=== PATIENT | male | born 2005 | race Caucasian/White ===

== ENCOUNTER 2024-05-30 17:27 | Emergency (ER) | payer SELFPAY ==
[~2024-05-30] VITALS: Ht 182.9 cm; Wt 92.2 kg
[2024-05-30 17:36] VITALS: BP 129/71; PULSE 80; RESP 16; TEMP 97.8
[2024-05-30 20:24] VITALS: O2SAT 98
[2024-05-30] MEDS: TETANUS-DIPTH-ACEL PERTUSSIS 0.5ML SYR Tdap IM ONE (20:47)
== END 2024-05-30 20:53 | disposition home or self-care (01) ==
LOC: ER 17:27
DX: S51.811A Laceration without foreign body of right forearm, initial encounter (principal); W45.8XXA Other foreign body or object entering through skin, initial encounter; Y93.89 Activity, other specified; Y92.89 Other specified places as the place of occurrence of the external cause; Y99.8 Other external cause status
CPT/HCPCS: 12001; 90471; 90715

== ENCOUNTER 2024-06-07 19:58 | Emergency (ER) | payer SELFPAY | END 2024-06-07 21:33 | disposition left against medical advice (07) | LOC: ER 19:58 | DX: T14.8XXD Other injury of unspecified body region, subsequent encounter (principal); Z53.21 Procedure and treatment not carried out due to patient leaving prior to being seen by health care provider; X58.XXXD Exposure to other specified factors, subsequent encounter ==